=== PATIENT | female | born 1960 | race Caucasian/White ===

== ENCOUNTER 2017-02-18 14:34 | Emergency (ER) | payer OTHER ==
[~2017-02-18] VITALS: Ht 165.1 cm; Wt 86.2 kg
[~2017-02-18 14:34] MED LIST: AMBIEN10 M1 JT; AUGMENTIN 875 M1 TAB PO; BACTRIM DS 8001 TA1 PO; BLOOD SUGAR MED; CAPOTEN50 MG PO; CLARITIN10 MG PO; DIFLUCAN200 MG PO; FLEXERIL10 MG PO; GLUCOPHAGE1000 MG PO; KEFLEX500 MG PO; LANTUS100 U/ML SC; NOVOLOG 70/30 M10 ML SC; SIMVASTATIN40 MG PO; SYNTHROID0.15 MG PO; TORADOL10 MG PO; TRAD5TAB1 PO; WELLBUTRIN XL300 MG PO; XANAX1 MG PO; [UNRECOGNIZED DRUG - OTHER] PO
[2017-02-18 14:36] VITALS: BP 145/90
[2017-02-18 15:14] LABS: BASO % 0.5 % (0.0-1.0); EOS # 0.1 10*3/uL (0.0-0.4); EOS % 1.3 % (1.0-4.0); HEMATOCRIT 46.8 % (37.0-47.0); HEMOGLOBIN 16.4 g/dl (12.0-16.0); LYMPH # 2.9 10*3/uL (1.3-4.4); LYMPH % 34.1 % (27.0-41.0); MEAN CORPUSCULAR HGB 30.1 pg (27.0-31.0); MEAN PLATELET VOLUME 9.6 fl (9.6-12.3); MONO # 0.5 10*3/uL (0.1-1.0); MONO % 5.8 % (3.0-9.0); NEUT # 4.9 10*3/uL (2.3-7.9); NEUT % 57.9 % (47.0-73.0); PLATELET COUNT AUTOMATED 294 10*3/uL (130-400); RED BLOOD COUNT 5.44 10*6/uL (4.10-5.10); RED CELL DISTRI WIDTH 13.3 % (0-14.5); WHITE BLOOD COUNT 8.4 10*3/uL (4.8-10.8)
[2017-02-18 15:16] LABS: BILIRUBIN NEGATIVE (NEGATIVE); BLOOD NEGATIVE (NEGATIVE); CLARITY CLEAR (CLEAR); COLOR YELLOW (YELLOW); GLUCOSE 3+ (NEGATIVE); KETONE NEGATIVE (NEGATIVE); LEUKO ESTERASE NEGATIVE (NEGATIVE); NITRITE NEGATIVE (NEGATIVE); SPECIFIC GRAVITY <= 1.005 (1.005-1.030); UROBILINOGEN 0.2 E.U./dl (0.2-1.0)
[2017-02-18 15:26] LABS: BACTERIA TRACE; RBC 0-2 rbc/hpf (0-2); WBC 0-2 wbc/hpf (0-5)
[2017-02-18 15:32] LABS: ALKALINE PHOSPHATASE 137 U/L (45-117); BUN 13 mg/dl (7-24); CHLORIDE 99 mmol/L (98-107); CREATININE 0.89 mg/dL (0.55-1.02); SGOT/AST 19 IU/L (3-35); SGPT/ALT 33 U/L (12-78); SODIUM 132 mmol/L (136-145); TOTAL PROTEIN 7.8 gm/dL (6.4-8.2)
[2017-02-18] MEDS ORDERED: NEURONTIN100 MG PO (16:22)
== END 2017-02-18 16:30 | disposition home or self-care (01) ==
LOC: ED 14:34
PROVIDERS: Nurse Practitioner Family
DX: R10.30 Lower abdominal pain, unspecified (principal); R03.0 Elevated blood-pressure reading, without diagnosis of hypertension; F17.200 Nicotine dependence, unspecified, uncomplicated; Z91.041 Radiographic dye allergy status; Z88.6 Allergy status to analgesic agent; Z79.899 Other long term (current) drug therapy; Z98.890 Other specified postprocedural states

== ENCOUNTER 2017-06-05 23:12 | Emergency (ER) | payer OTHER ==
[~2017-06-05] VITALS: Ht 167.6 cm; Wt 83.9 kg
[~2017-06-05 23:12] MED LIST changes: +NEURONTIN100 MG PO
[2017-06-05 23:14] VITALS: BP 142/70
[2017-06-05] MEDS ORDERED: PROPRANOLOL HCL10 MG PO (23:20)
[2017-06-05] MEDS ORDERED: NIACIN500 M2 PO (23:20)
[2017-06-05] MEDS ORDERED: VALTREX1000 MG PO (23:21)
[2017-06-05] MEDS ORDERED: IBU800 M1 PO (23:21)
[2017-06-05] MEDS ORDERED: OMEPRAZOLE D/R20 MG PO (23:21)
[2017-06-05] MEDS ORDERED: TRINTELLIX20 MG PO (23:22)
[2017-06-05] MEDS ORDERED: MIRALAX POWDER255 G1 PO (23:23)
[2017-06-05] MEDS ORDERED: CEPHALEXIN500 M1 PO (23:48)
== END 2017-06-06 00:02 | disposition home or self-care (01) ==
LOC: ED 23:12
DX: S71.111A Laceration without foreign body, right thigh, initial encounter (principal); E11.9 Type 2 diabetes mellitus without complications; Z91.041 Radiographic dye allergy status; Z88.6 Allergy status to analgesic agent; Z79.899 Other long term (current) drug therapy; W26.8XXA Contact with other sharp object(s), not elsewhere classified, initial encounter; Y93.89 Activity, other specified; Y92.89 Other specified places as the place of occurrence of the external cause; Y99.8 Other external cause status

== ENCOUNTER 2017-08-04 23:53 | Emergency (ER) | payer OTHER ==
[~2017-08-04] VITALS: Ht 162.5 cm; Wt 81.6 kg
[~2017-08-04 23:53] MED LIST changes: +CEPHALEXIN500 M1 PO; +IBU800 M1 PO; +MIRALAX POWDER255 G1 PO; +NIACIN500 M2 PO; +OMEPRAZOLE D/R20 MG PO; +PROPRANOLOL HCL10 MG PO; +TRINTELLIX20 MG PO; +VALTREX1000 MG PO
[2017-08-05] MEDS ORDERED: FLOVENT HFA12 GM INH (01:52)
[2017-08-05] MEDS ORDERED: PROAIR HFA8.5 GM INH (01:52)
[2017-08-05] MEDS ORDERED: ATIVAN1 MG PO (01:52)
[2017-08-05] MEDS ORDERED: ZOFRAN ODT4 MG SL (01:53)
[2017-08-05 01:55] VITALS: BP 123/75
== END 2017-08-05 02:08 | disposition home or self-care (01) ==
LOC: ED 23:53
DX: F41.1 Generalized anxiety disorder (principal); Z90.710 Acquired absence of both cervix and uterus; Z98.890 Other specified postprocedural states; Z79.899 Other long term (current) drug therapy; Z79.4 Long term (current) use of insulin; Z91.041 Radiographic dye allergy status; Z88.5 Allergy status to narcotic agent